=== PATIENT | male | born 1965 | race Caucasian/White ===

== ENCOUNTER 2017-09-27 14:53 | Emergency (ER) | payer MEDICAID ==
[~2017-09-27] VITALS: Ht 180.3 cm; Wt 79.4 kg
[~2017-09-27 14:53] MED LIST: ALPR-229; AMPH30CA7; CLON1POW; HYDR10TA35
[2017-09-27 15:40] VITALS: BP 145/100
[2017-09-27] MEDS ORDERED: MUPIROCIN 2% OINT 22GM TOP ONE (16:15)
[2017-09-27] MEDS ORDERED: KETOROLAC TROMETH 60MG/2ML VIAL IM ONE (16:15)
[2017-09-27] MEDS ORDERED: NEOMYCIN-BACITRACIN-POLYM UNITDOSE PKG TOP OINT TOP ONE (16:15)
[2017-09-27] MEDS ORDERED: HYDROcodone-ACET 10/325MG TAB PO ONE (16:30)
== END 2017-09-27 16:43 | disposition home or self-care (01) ==
LOC: ER 15:07
DX: S92.325A Nondisplaced fracture of second metatarsal bone, left foot, initial encounter for closed fracture (principal); I10 Essential (primary) hypertension; W22.8XXA Striking against or struck by other objects, initial encounter; Y93.89 Activity, other specified; Y99.8 Other external cause status; Y92.89 Other specified places as the place of occurrence of the external cause
CPT/HCPCS: 73620; 99284; J1885

== ENCOUNTER 2019-09-21 11:31 | Emergency (ER) | payer MEDICAID ==
[~2019-09-21] VITALS: Ht 177.8 cm; Wt 79.4 kg
[~2019-09-21 11:31] MED LIST changes: -CLON1POW; +[UNRECOGNIZED DRUG - CODE]
[2019-09-21 11:50] VITALS: BP 121/97
[2019-09-21 13:22] LABS: Basophils # (auto) 0 uL; Basophils % (auto) 0.6 % (0.0-2.0); Eosinophils # (auto) 0.3 uL; Eosinophils % (auto) 3.4 % (0.0-7.0); Hematocrit 40.1 % (41.0-53.0); Hemoglobin 13.4 g/dL (13.5-17.5); Lymphocytes # (auto) 1.6 uL; Lymphocytes % (auto) 21.9 % (10.0-50.0); Mean Corpuscular Hemoglobin 30.6 pg (28.0-32.0); Mean Corpuscular Hgb Conc. 33.3 g/dL (32.0-36.0); Mean Corpuscular Volume 92.1 fL (80.0-100.0); Monocytes # (auto) 0.7 uL; Monocytes % (auto) 9.4 % (0.0-12.0); Neutrophils # (auto) 4.9 uL; Neutrophils % (auto) 64.7 % (37.0-80.0); Platelet Count (auto) 352 10^3/uL (140-450); Red Blood Cells 4.36 10^6/uL (4.5-5.90); Red Cell Distribution Width 13.3 % (11.8-14.3); White Blood Cell 7.5 10^3/uL (4.4-10.8)
[2019-09-21 13:42] LABS: INR 1.01 (0.9-1.15); Partial Thromboplastin Time 30.5 sec (23.64-32.05)
[2019-09-21 13:52] LABS: Albumin 3.2 g/dL (3.4-5.0); Magnesium 2.4 mg/dL (1.6-2.6); Potassium 3.9 mmol/L (3.5-5.1)
[2019-09-21 13:57] LABS: BUN/Creatinine Ratio 8.5; Bilirubin, Total 0.5 mg/dL (0.2-1.0); Total Protein 7.4 g/dL (6.4-8.2)
== END 2019-09-21 16:15 | disposition left against medical advice (07) ==
LOC: ER 11:31
DX: J18.1 Lobar pneumonia, unspecified organism (principal); E78.5 Hyperlipidemia, unspecified; I10 Essential (primary) hypertension
CPT/HCPCS: 36415; 70450; 71045; 80053; 83735; 83880; 84484; 85025; 85610; 85730; 93005

== ENCOUNTER 2021-12-08 22:02 | Emergency (ER) | payer MEDICAID ==
[~2021-12-08] VITALS: Ht 180.3 cm; Wt 79.4 kg
[~2021-12-08 22:02] MED LIST changes: -ALPR-229; +ALPR2TAB6
[2021-12-08] MEDS ORDERED: DexAMETHasone SOD PHOS 10MG/1ML VIAL INJ IV ONE (23:00)
[2021-12-08 23:04] LABS: Basophils # (auto) 0.1 10 ^3/uL (0-0.2); Basophils % (auto) 2.3 % (0.0-2.0); Eosinophils # (auto) 0.4 10 ^3/uL (0-0.8); Eosinophils % (auto) 7.6 % (0.0-7.0); Hematocrit 39.1 % (41.0-53.0); Hemoglobin 13.1 g/dL (13.5-17.5); Lymphocytes # (auto) 1.5 10 ^3/uL (0.4-5.4); Lymphocytes % (auto) 26.4 % (10.0-50.0); Mean Corpuscular Hemoglobin 30.6 pg (28.0-32.0); Mean Corpuscular Hgb Conc. 33.5 g/dL (32.0-36.0); Mean Corpuscular Volume 91.3 fL (80.0-100.0); Monocytes # (auto) 0.4 10 ^3/uL (0-1.3); Monocytes % (auto) 6.7 % (0.0-12.0); Neutrophils # (auto) 3.2 10 ^3/uL (1.6-8.6); Nucleated Red Blood Cells % 0.1 %; Red Blood Cells 4.29 10^6/uL (4.5-5.90); Red Cell Distribution Width 13.2 % (11.8-14.3); White Blood Cell 5.6 10^3/uL (4.4-10.8)
[2021-12-08 23:18] VITALS: BP 132/97
[2021-12-08 23:23] LABS: Albumin 3.5 g/dL (3.4-5.0); Potassium 4.2 mmol/L (3.5-5.1)
[2021-12-08 23:28] LABS: BUN/Creatinine Ratio 12.6; Bilirubin, Total 0.3 mg/dL (0.2-1.0); Total Protein 6.9 g/dL (6.4-8.2)
== END 2021-12-09 01:10 | disposition home or self-care (01) ==
LOC: ER 22:02 → EDBD 22:02 → ER 12-09 01:10
DX: J45.909 Unspecified asthma, uncomplicated (principal); I10 Essential (primary) hypertension; E78.5 Hyperlipidemia, unspecified; Z86.73 Personal history of transient ischemic attack (TIA), and cerebral infarction without residual deficits; Z20.822 Contact with and (suspected) exposure to COVID-19
CPT/HCPCS: 36415; 71045; 80053; 84484; 85025; 87426; 93005; 96374; 99285; J1100

== ENCOUNTER 2024-03-27 11:40 | Emergency (ER) | payer MEDICAID ==
[~2024-03-27] VITALS: Ht 177.8 cm; Wt 62.8 kg
[2024-03-27 13:43] VITALS: BP 125/89; PULSE 84; RESP 16; TEMP 98.2; O2SAT 97
[2024-03-27] MEDS: TETANUS-DIPTH-ACEL PERTUSSIS 0.5ML SYR Tdap IM ONE (15:08)
[2024-03-27] MEDS: BACITRACIN TOP OINT 1 UD PKG TOP ONE (15:30)
== END 2024-03-27 15:40 | disposition home or self-care (01) ==
LOC: ER 11:40
DX: S01.81XA Laceration without foreign body of other part of head, initial encounter (principal); S06.891A Other specified intracranial injury with loss of consciousness of 30 minutes or less, initial encounter; I10 Essential (primary) hypertension; E11.9 Type 2 diabetes mellitus without complications; E78.5 Hyperlipidemia, unspecified; J45.909 Unspecified asthma, uncomplicated; Z86.73 Personal history of transient ischemic attack (TIA), and cerebral infarction without residual deficits; Z98.890 Other specified postprocedural states; Z88.8 Allergy status to other drugs, medicaments and biological substances; Z79.899 Other long term (current) drug therapy; W22.8XXA Striking against or struck by other objects, initial encounter; Y93.89 Activity, other specified; Y92.89 Other specified places as the place of occurrence of the external cause; Y99.8 Other external cause status
CPT/HCPCS: 12011; 70450; 82962; 90471; 90715

== ENCOUNTER 2025-04-27 11:19 | Inpatient (IN) | payer MEDICAID ==
[~2025-04-27] VITALS: Ht 175.3 cm; Wt 66.6 kg
--- NOTE | 2025-04-27 11:31 | ED.PDOC ---
General HPI Comments 59y M who presents to the ED for chief complaint of Left Mid abdominal pain - pt states he has been having L sided mid abdominal pain for the past 3 days - pt states the pain is constant, with pain radiating to the left flank, - pt has associated dysuria and difficulty voiding but denies any other symptoms - pt otherwise denies any other symptoms at this time past medical history: DM 2, HLD, CVA, HTN, past surgical history: hernia allergies: ketoralax, tromethamine medications: insulin, flomax social history: denies tobacco use, denies ETOH use, denies drug use HPI: Poor Historian. REVIEW OF SYSTEMS: CONSTITUTIONAL: Denies acute: fever, diaphoresis, chills, generalized weakness. HEAD: Denies acute: headache, photophobia Eyes: Denies acute: Double vision, vision loss, eye pain, eye discharge. EARS: Denies acute: tinnitus, hearing loss, ear discharge, ear pain, THROAT: Denies acute: sore throat, swelling, difficulty swallowing , pain with swallowing, change in voice. NECK: Denies acute: neck pain, neck swelling, stiff neck. HEART: Denies acute : chest pain, palpitations, LUNGS: Denies acute: SOB, wheezing, cough, hemoptysis ABDOMEN: Denies acute: Nausea, Vomiting, diarrhea, melena , hematemesis, hematochezia SKIN: Denies acute: rash, redness, lesions, itchiness. EXTREMITIES: Denies acute: calf pain, numbness, tingling, weakness, denies pain in extremity. Denies acute: Low back pain. Neuro: Denies acute: focal neurological deficit, motor or sensory focal neurological deficit, tremors, seizure like activity, confusion, dizziness, change in mental status, loss of bowel or bladder function, cauda equina like symptoms. : Denies acute: hematuria, flank pain, PSYCH: Denies acute: hallucination, suicidal ideation, homicidal ideation. PHYSICAL EXAM: General: ----qkzq-[id number]----acute distress, awake and alert. Head: normocephalic, atraumatic. Neck: supple, trachea is midline, no swelling. Throat: Normal phonation. Eyes:, no erythema, no purulent discharge, no proptosis, no icterus. Heart: regular rate, regular rhythm, no significant murmur appreciated. Lungs: no apparent respiratory distress, Able to speak in full sentences. No wheezing, no rhonchi, no crackles. No stridors Clear to auscultation bilaterally. Abdomen: Left mid abdomen tender to palpation, non distended, soft, no guarding, no rebound, + bowel sounds. Neuro: Awake, Alert, oriented to name, self, situation, follows commands GCS=15. Speech is normal. Skin: no petechia, no purpura, no cyanosis, non-pale, not jaundice. Lower extremities: --no - Pitting edema no deformity, no focal swelling, no calf TTP. Makes eye contact. moves all four extremities. Face: no apparent facial droop. Left CVA tenderness to percussion ED COURSE: DISCLAIMER: This medical document was created using an electronic medical record system with voice recognition software and computerized dictation system. Although this document has been carefully reviewed, there might still be some phonetic and typographical errors. Occasional wrong-word or "sound-alike" substitutions may have occurred due to the inherent limitations of voice recognition software. These areas are purely typographical due to imperfections of the software programs and do not reflect any compromise in the patient's medical care. Please read the chart carefully and recognize, using context, where these substitutions have occurred. Time Seen by MD: 11:25 Primary Care Provider: AVIS Perla notes: Medications, Allergies Allergies: Coded Allergies: Ketorolac Tromethamine (Verified Allergy, Mild, PAIN AT SITE FOR 3 MONTHS, 09/27/17) Home Meds Reported Medications Hydrocodone-Acetaminophen (Hydrocodone Bitartrate/Ac) 1 Tab Tab, DAILY 07/26/13 Alprazolam (Alprazolam) 2 Mg Tab, DAILY 07/26/13 Amphetamine/Dextroamphetamine (Adderall Xr) 30 Mg Cap, BID 07/26/13 Clonidine Hydrochloride (Clonidine Hcl) Pow 06/24/10 Information Source: Patient, Spouse Mode of Arrival: Wheelchair Brought in by: spouse Past Medical History PAST MEDICAL HISTORY: Asthma, CVA, DM, High Lipids, HTN Surgical History: Hernia Repair Family History Family History: Reviewed,noncontributory to illness Social History Smoker: Non-Smoker Alcohol: Denies ETOH Use Drugs: Denies Drug Use Lives In: Home Was a procedure done? Was a procedure done?: No Differential Diagnosis Kidney stone (Female): N/A Kidney stone (Male): Other (DDX include but not limited to diverticulitis, colitis, gastroenteritis, acute abdomen, SBO, enteritis, constipation, volvulus, appendicitis, Gallbladder disease, choledocolithiasis, ascending cholangitis, pancreatitis, intraAbdominal mass/neoplasm, hepatitis, UTI, pylonephritis, kidney stone, aneurysm, dissection, Inflammatory bowel disease, gastroparesis, ischemic bowel.) Urinary Problem (Male): Bladder Outlet, Bladder Obstruction, Epididymitis, Prostatitis, Plelonephritis, Post op Complications, Renal Failure, Urethritis, Urinary Retention, Urolithiasis X-Ray, Labs, Meds, VS Vital Signs Date Time Temp Pulse Resp B/P (MAP) Pulse Ox O2 Delivery O2 Flow Rate FiO2 04/27/25 13:42 84 19 98 Room Air* 0 21 04/27/25 12:58 98.7 81 16 137/87 (104) 96 98.7 04/27/25 12:58 81 16 96 Room Air 04/27/25 11:28 98.5 80 18 128/83 (98) 95 98.5 Lab Test 04/27/25 11:53 04/27/25 11:30 Range/Units White Blood Count 8.9 4.4-10.8 10^3/uL Red Blood Count 4.76 4.5-5.90 10^6/uL Hemoglobin 14.2 13.5-17.5 g/dL Hematocrit 42.1 41.0-53.0 % Mean Corpuscular Volume 88.5 80.0-100.0 fL Mean Corpuscular Hemoglobin 29.8 28.0-32.0 pg Mean Corpuscular Hemoglobin Concent 33.7 32.0-36.0 g/dL Red Cell Distribution Width 14.6 H 11.8-14.3 % Platelet Count 286 140-450 10^3/uL Mean Platelet Volume 6.8 L 6.9-10.8 fL Neutrophils (%) (Auto) 71.7 37.0-80.0 % Lymphocytes (%) (Auto) 18.3 10.0-50.0 % Monocytes (%) (Auto) 7.7 0.0-12.0 % Eosinophils (%) (Auto) 1.7 0.0-7.0 % Basophils (%) (Auto) 0.6 0.0-2.0 % Neutrophils # (Auto) 6.4 1.6-8.6 10 ^3/uL Lymphocytes # (Auto) 1.6 0.4-5.4 10 ^3/uL Monocytes # (Auto) 0.7 0-1.3 10 ^3/uL Eosinophils # (Auto) 0.2 0-0.8 10 ^3/uL Basophils # (Auto) 0.1 0-0.2 10 ^3/uL Nucleated Red Blood Cells 0.0 % Sodium Level 144 136-145 mmol/L Potassium Level 3.4 L 3.5-5.1 mmol/L Chloride Level 112 H 98-107 mmol/L Carbon Dioxide Level 20 20-31 mmol/L Anion Gap 12 5-15 Blood Urea Nitrogen 20 9-23 mg/dL Creatinine 1.81 H 0.700-1.30 mg/dL Glomerular Filtration Rate Calc 42 >90 mL/min BUN/Creatinine Ratio 11.0 10.0-20.0 Serum Glucose 52 L 74-106 mg/dL Lactic Acid Level 0.9 0.4-2.0 mmol/L Calcium Level 10.0 8.7-10.4 mg/dL Total Bilirubin 0.6 0.2-1.0 mg/dL Aspartate Amino Transferase (AST) 17 <34 U/L Alanine Aminotransferase (ALT) 12 7-40 U/L Alkaline Phosphatase 79 46-116 U/L Troponin I High Sensitivity 4 </=54 ng/L Total Protein 7.0 5.7-8.2 g/dL Albumin 4.4 3.2-4.8 g/dL Lipase 14 12-53 U/L Urine Color Light-yellow Yellow Urine Clarity Clear Clear Urine pH 5.5 5.0-9.0 Urine Specific [place] 1.014 1.001-1.035 Urine Protein 1+ H Negative Urine Ketones Negative Negative Urine Blood 2+ H Negative /uL Urine Nitrite Negative Negative Urine Bilirubin Negative Negative Urine Urobilinogen Normal Negative mg/dL Urine Leukocyte Esterase Negative Negative /uL Urine RBC 10 0 - 3 /hpf Urine Microscopic WBC 1 0-3 /HPF Urine Squamous Epithelial Cells Few <5 /hpf Urine Bacteria Few H None Seen /hpf Urine Glucose Normal Normal mg/dL [facility] [id number] [facility] [address] Ph: [phone] DIAGNOSTIC IMAGING Diagnostic Imaging Report : [id number] Signed PATIENT: BRAYDEN KAUFMAN ACCT: [id number] UNIT: [id number] : 1965 LOC: ER ROOM / BED: / AGE / SEX: 59 / M ADM STATUS: REG ER SERVICE 1126 ORDERING PHYSICIAN: RUTHY SALAZAR DO PROCEDURE(s): ABPL - CT AB PEL WO CON-NO ORAL OR IV REASON: L sided abd pain ORDER NUMBER(s): [id number], ACCESSION NUMBER(s): [id number] EXAM DESCRIPTION: CT CT AB PEL WO CON-NO ORAL OR IV CLINICAL HISTORY: L sided abd pain COMPARISON: None TECHNIQUE: CT abdomen and pelvis without IV contrast was performed. Coronal and sagittal MPR images were generated.CTDI/ DLP = 8.63 / 374.37 Dose reduction technique with one or more of the following methods was performed: Automated exposure control, adjustment of the mA and/or kV according to patient size, use of iterative reconstruction technique FINDINGS: Lower chest: Bibasilar subsegmental atelectasis. Coronary artery disease. Liver: Homogenous in attenuation. . Biliary: No calcified gallstones. No biliary ductal dilatation. Pancreas: Markedly atrophic pancreas with numerous calcifications. The pancreatic duct is dilated measuring up to 14mm of the pancreatic head. There is an 11 mm calcification at the pancreatic head, possibly intraductal. Spleen: Normal in size.. Adrenal glands: No nodularity. Kidneys: A few right renal calculi measuring up to 3 mm. No right-sided hydronephrosis. Mild left hydroureteronephrosis with A 4mm calculus at the left ureterovesicular junction. . Bladder: Diffuse bladder wall thickening. Reproductive organs: Prostatomegaly. Bowel: No bowel wall thickening or dilatation. Moderate to large colonic stool burden. . Peritoneum: No free fluid. No free air. Vessels: Normal caliber abdominal aorta. . Lymph nodes: No suspicious lymph nodes. Soft tissues: Unremarkable. . Osseous structures: No acute fracture or subluxation. No suspicious osseous lesions. Degenerative changes of the visualized thoracolumbar spine. Bilateral L5 pars defects with grade 1-2 anterolisthesis of L5 on S1. Mild compression deformity of the L3 vertebral body, likely chronic. [id number] compression deformity of the L4 vertebral body, likely chronic. IMPRESSION: 1. Mild left hydroureteronephrosis due to a 4 mm obstructing calculus at the left uterovesicular junction. 2. A few nonobstructive right renal calculi measuring up to 3 mm. 3. Diffuse bladder wall thickening with prostatomegaly, suggestive of chronic bladder outlet obstruction. Underlying cystitis cannot be excluded. 4. Atrophic pancreas with numerous calcifications, suggestive of chronic pancreatitis. There is severe pancreatic ductal dilation with a possible 14 mm intraductal calcification at the pancreatic head. Recommend further evaluation with MRCP. ATED BY: RADHA BARROSO MD DICTATED DATE/TIME: 04/27/25 1223 SIGNED BY: RADHA BARROSO MD SIGNED DATE/TIME: 04/27/25 1223 CC: Time of 1ST Reevaluation: 00:00 Reevaluation 1ST: N/A Patient Education/Counseling: Diagnosis, Treatment Family Education/Counseling: Diagnosis, Treatment Comments Patient presented with the above HPI.--abdominal pain---workup was initiated. patient was found with the above mentioned diagnosis. the following medications were ordered: please refer to order lists of meds and tests obtained by myself Dr. Salazar. Patient ED course and VS have been stabilized. Patient has been reassessed in the ED and remained in a stable condition. Pertinent incidental findings were discussed with the patient and/or family. Patient/family voices understanding and is agreeable with plan. Patient has been observed in the ED adequate length of time to insure improvement/stability. Escalation of care considered: Consideration of escalation to observation or admission Patient was ADMITTED to the medicine team for further evaluation and treatment of their presentation. All the reports of any imaging studies that were ordered by myself were reviewed by myself. Departure 1 Departure Time of Disposition: 13:34 Impression: Primary Impression: Hydroureteronephrosis Additional Impressions: Obstructive uropathy Cystitis Acute renal insufficiency Disposition: ADMITTED INPATIENT Admit to: Tele Condition: Guarded Discharged With: Self Critical Care Note Critical Care Time?: Yes (55 min-critical care time only) I personally scribed for RUTHY SALAZAR DO (DVFARIL) on 04/27/25 at 11:31. Electronically submitted by Nay Ogden ([facility]). I personally scribed for RUTHY SALAZAR DO (OLEFARIL) on 04/27/25 at 12:17. Electronically submitted by Nay Ogden ([facility] I personally scribed for RUTHY SALAZAR DO ([facility]) on 04/27/25 at 14:24. Electronically submitted by Nay Ogden ([facility] RUTHY SALAZAR DO Apr 27, 2025 11:31
[2025-04-27 12:03] LABS: Basophils # (auto) 0.1 10 ^3/uL (0-0.2); Basophils % (auto) 0.6 % (0.0-2.0); Eosinophils # (auto) 0.2 10 ^3/uL (0-0.8); Eosinophils % (auto) 1.7 % (0.0-7.0); Hematocrit 42.1 % (41.0-53.0); Hemoglobin 14.2 g/dL (13.5-17.5); Lymphocytes # (auto) 1.6 10 ^3/uL (0.4-5.4); Lymphocytes % (auto) 18.3 % (10.0-50.0); Mean Corpuscular Hemoglobin 29.8 pg (28.0-32.0); Mean Corpuscular Hgb Conc. 33.7 g/dL (32.0-36.0); Mean Corpuscular Volume 88.5 fL (80.0-100.0); Monocytes # (auto) 0.7 10 ^3/uL (0-1.3); Monocytes % (auto) 7.7 % (0.0-12.0); Neutrophils # (auto) 6.4 10 ^3/uL (1.6-8.6); Neutrophils % (auto) 71.7 % (37.0-80.0); Platelet Count (auto) 286 10^3/uL (140-450); Red Blood Cells 4.76 10^6/uL (4.5-5.90); Red Cell Distribution Width 14.6 % (11.8-14.3); White Blood Cell 8.9 10^3/uL (4.4-10.8)
--- NOTE | 2025-04-27 12:25 | DVH ---
EXAM DESCRIPTION: CT CT AB PEL WO CON-NO ORAL OR IV CLINICAL HISTORY: L sided abd pain COMPARISON: None TECHNIQUE: CT abdomen and pelvis without IV contrast was performed. Coronal and sagittal MPR images were generat ed.CTDI/ DLP = 8.63 / 374.37 Dose reduction technique with one or more of the following methods was performed: Automated exposure control, adjustment of the mA and/or kV according to patient size, use of iterative reconstruction te chnique FINDINGS: Lower chest: Bibasilar subsegmental atelectasis. Coronary artery disease. Liver: Homogenous in attenuation. . Biliary: No calcified gallstones. No biliary ductal dilatation. Pancreas: Markedly atrophic pancreas with numerous calcifications. The pancreatic duct is dilated debo suring up to 14mm of the pancreatic head. There is an 11 mm calcification at the pancreatic head, pos sibly intraductal. Spleen: Normal in size.. Adrenal glands: No nodularity. Kidneys: A few right renal calculi measuring up to 3 mm. No right-sided hydronephrosis. Mild left hyd roureteronephrosis with A 4mm calculus at the left ureterovesicular junction. . Bladder: Diffuse bladder wall thickening. Reproductive organs: Prostatomegaly. Bowel: No bowel wall thickening or dilatation. Moderate to large colonic stool burden. . Peritoneum: No free fluid. No free air. Vessels: Normal caliber abdominal aorta. . Lymph nodes: No suspicious lymph nodes. Soft tissues: Unremarkable. . Osseous structures: No acute fracture or subluxation. No suspicious osseous lesions. Degenerative c hanges of the visualized thoracolumbar spine. Bilateral L5 pars defects with grade 1-2 anterolisthesi s of L5 on S1. Mild compression deformity of the L3 vertebral body, likely chronic. [id number] compression deformity of the L4 vertebral body, likely chronic. IMPRESSION: 1. Mild left hydroureteronephrosis due to a 4 mm obstructing calculus at the left uterovesicular junc tion. 2. A few nonobstructive right renal calculi measuring up to 3 mm. 3. Diffuse bladder wall thickening with prostatomegaly, suggestive of chronic bladder outlet obstruct ion. Underlying cystitis cannot be excluded. 4. Atrophic pancreas with numerous calcifications, suggestive of chronic pancreatitis. There is sever e pancreatic ductal dilation with a possible 14 mm intraductal calcification at the pancreatic head. Recommend further evaluation with MRCP.
[2025-04-27 12:50] LABS: Alanine Aminotransferase 12 U/L (7-40); Albumin 4.4 g/dL (3.2-4.8); Alkaline Phosphatase 79 U/L (46-116); Anion Gap 12 (5-15); Aspartate Aminotransferase 17 U/L (<34); Blood Urea Nitrogen 20 mg/dL (9-23); Carbon Dioxide 20 mmol/L (20-31); Sodium 144 mmol/L (136-145)
[2025-04-27 12:51] LABS: Bilirubin, Total 0.6 mg/dL (0.2-1.0); Chloride 112 mmol/L (98-107); Glucose 52 mg/dL (74-106); Potassium 3.4 mmol/L (3.5-5.1)
[2025-04-27 13:11] LABS: Lipase 14 U/L (12-53)
[2025-04-27] MEDS: TAMSULOSIN HYDROCHLORIDE 0.4 MG CAP PO ONE (13:15)
[2025-04-27] MEDS: SODIUM CHLORIDE 0.9% 1,000 ML IV ONE ×2 (13:16→14:57)
[2025-04-27] MEDS: HYDROcodone-ACET 5/325MG TAB PO ONE (13:16)
[2025-04-27] MEDS: cefTRIAXone 1GM/50ML D5W 50 ML IV ONE (13:38)
[2025-04-27 13:42] VITALS: PULSE 84; RESP 19; O2SAT 98
[2025-04-27] MEDS ORDERED: ACETAMINOPHEN 325 MG TAB PO PRN (14:15)
[2025-04-27] MEDS ORDERED: TEMAZEPAM 15 MG CAP PO PRN (14:15)
--- NOTE | 2025-04-27 14:20 | DVHHP2 ---
Admitting Diagnosis: Abdominal pain History of Present Illness 59 y/o male patient presents with c/o left abdominal pain x3 days. Patient states pain radiates to the left flank. Patient also c/o dysuria. While in the emergency department the patient was evaluated by the provider, As per provider: Labs, vital signs, and imagining monitored. Patient will be admitted for further evaluation and treatment. I discussed admission with the patient/family and is in agreement to treatment plan. Allergies: Coded Allergies: Ketorolac Tromethamine (Verified Allergy, Mild, PAIN AT SITE FOR 3 MONTHS, 09/27/17) Home Meds Reported Medications Hydrocodone-Acetaminophen (Hydrocodone Bitartrate/Ac) 1 Tab Tab, DAILY 07/26/13 Alprazolam (Alprazolam) 2 Mg Tab, DAILY 07/26/13 Amphetamine/Dextroamphetamine (Adderall Xr) 30 Mg Cap, BID 07/26/13 Clonidine Hydrochloride (Clonidine Hcl) Pow 06/24/10 Current Medications Current Medications Medications (Trade) Dose Ordered Sig/Margarita Route PRN Reason Start Time Stop Time Status Last Admin Acetaminophen/ Hydrocodone Bitart ([place] 5/325MG Tab) 1 tab Q4HP PRN PO MODERATE PAIN (4-6 PAIN SCALE) 04/27/25 14:15 04/28/25 10:01 Temazepam (Restoril) 15 mg QHSP PRN PO FOR INSOMNIA 04/27/25 14:15 Ondansetron HCl (Zofran) 4 mg Q4HP PRN IV NAUSEA / VOMITING 04/27/25 14:15 04/28/25 07:48 Acetaminophen (Tylenol Tablet) 650 mg Q6HP PRN PO PAIN SCALE 1-3 OR TEMP>100.4 04/27/25 14:15 Morphine Sulfate 2 mg Q4HPRN PRN IV SEVERE PAIN (7-10 PAIN SCALE) 04/27/25 14:15 04/28/25 07:49 Enoxaparin Sodium (Lovenox) 30 mg DAILY SC 04/28/25 10:00 04/28/25 07:48 Pantoprazole Sodium (Protonix) 40 mg DAILY IV 04/28/25 10:00 04/28/25 07:47 Tamsulosin HCl (Flomax) 0.4 mg QPM PO 04/28/25 18:00 Lisinopril (Zestril Tablet) 10 mg DAILY PO 04/28/25 10:00 04/28/25 07:47 Diagnostic Test (Pha) (Accu-Chek Comfort Curve T) 1 strip ACHS 04/27/25 17:00 04/28/25 06:27 Insulin Human Regular (InsuLIN R) ACHS SC 04/27/25 17:00 04/27/25 21:42 Dextrose 50 ml UD PRN IV Blood Sugar LESS THAN 60 04/27/25 14:30 04/28/25 06:27 Review of Systems Constitutional: denies chills, denies fever, denies malaise Eyes: denies eye pain, denies vision change ENT: denies ear pain, denies headache, denies nasal congestion, denies painful swallowing, denies voice change Cardiovascular: denies chest pain, denies edema, denies orthopnea, denies palpitations, denies paroxysmal nocturnal dyspnea Respiratory: denies cough, denies shortness of breath Gastrointestinal: denies constipation, denies diarrhea, denies nausea, denies vomiting Genitourinary: denies frequent urination, denies urethral discharge Musculoskeletal: denies back pain, denies joint pain, denies muscle pain Skin: denies bruising, denies itching, denies rash Neurological: denies focal weakness, denies headache, denies sensory changes Psychiatric: denies anxiety, denies depression Endocrine: denies polydipsia, denies polyuria Hematologic/Lymphatic: denies easy bleeding, denies easy bruising, denies enlarged lymph nodes Allergic/Immunologic: denies allergy, denies hives Vital Signs Vital Signs Date Time Temp Pulse Resp B/P (MAP) Pulse Ox O2 Delivery O2 Flow Rate FiO2 04/28/25 11:23 98.3 79 18 104/71 (82) 95 98.3 04/28/25 09:55 Nasal Cannula* 2 28 Physical Exam General Appearance: alert, no distress HEENT: EOMI, PERRLA, normal external inspect of ears, no icterus, no nasal drainage Neck: no carotid bruit, no jugular venous distention (JVD), no lymphadenopathy Chest: normal thorax Respiratory: clear to auscultation, normal air movement Cardiovascular: regular rate and rhythm, no diastolic murmur, no jugular venous distention (JVD), no rub, no systolic murmur Abdominal: soft, no hepatomegaly, no mass, no splenomegaly, no tenderness Genitourinary: grossly normal external Musculoskeletal: no joint tenderness, no swelling Extremities: normal pulses, no calf tenderness, no clubbing, no cyanosis, no edema Skin: no bruising, no jaundice, no rash Neurological: alert, No focal deficit Results Labs Test 04/28/25 07:15 04/28/25 04:32 04/27/25 11:53 04/27/25 11:30 Range/Units POC Glucose 146 H 70-106 mg/dl White Blood Count 7.8 4.4-10.8 10^3/uL Red Blood Count 4.44 L 4.5-5.90 10^6/uL Hemoglobin 13.4 L 13.5-17.5 g/dL Hematocrit 39.2 L 41.0-53.0 % Mean Corpuscular Volume 88.3 80.0-100.0 fL Mean Corpuscular Hemoglobin 30.3 28.0-32.0 pg Mean Corpuscular Hemoglobin Concent 34.3 32.0-36.0 g/dL Red Cell Distribution Width 15.0 H 11.8-14.3 % Platelet Count 261 140-450 10^3/uL Mean Platelet Volume 7.3 6.9-10.8 fL Neutrophils (%) (Auto) 60.3 37.0-80.0 % Lymphocytes (%) (Auto) 28.2 10.0-50.0 % Monocytes (%) (Auto) 8.4 0.0-12.0 % Eosinophils (%) (Auto) 2.6 0.0-7.0 % Basophils (%) (Auto) 0.5 0.0-2.0 % Neutrophils # (Auto) 4.7 1.6-8.6 10 ^3/uL Lymphocytes # (Auto) 2.2 0.4-5.4 10 ^3/uL Monocytes # (Auto) 0.7 0-1.3 10 ^3/uL Eosinophils # (Auto) 0.2 0-0.8 10 ^3/uL Basophils # (Auto) 0 0-0.2 10 ^3/uL Nucleated Red Blood Cells 0.1 % Sodium Level 146 H 136-145 mmol/L Potassium Level 3.2 L 3.5-5.1 mmol/L Chloride Level 114 H 98-107 mmol/L Carbon Dioxide Level 21 20-31 mmol/L Anion Gap 11 5-15 Blood Urea Nitrogen 18 9-23 mg/dL Creatinine 1.38 H 0.700-1.30 mg/dL Glomerular Filtration Rate Calc 58 >90 mL/min BUN/Creatinine Ratio 13.0 10.0-20.0 Serum Glucose 38 *L 74-106 mg/dL Calcium Level 9.6 8.7-10.4 mg/dL Total Bilirubin 0.3 0.2-1.0 mg/dL Aspartate Amino Transferase (AST) 14 <34 U/L Alanine Aminotransferase (ALT) 17 7-40 U/L Alkaline Phosphatase 65 46-116 U/L Total Protein 6.4 5.7-8.2 g/dL Albumin 3.9 3.2-4.8 g/dL Lactic Acid Level 0.9 0.4-2.0 mmol/L Troponin I High Sensitivity 4 </=54 ng/L Lipase 14 12-53 U/L Urine Color Light-yellow Yellow Urine Clarity Clear Clear Urine pH 5.5 5.0-9.0 Urine Specific [place] 1.014 1.001-1.035 Urine Protein 1+ H Negative Urine Ketones Negative Negative Urine Blood 2+ H Negative /uL Urine Nitrite Negative Negative Urine Bilirubin Negative Negative Urine Urobilinogen Normal Negative mg/dL Urine Leukocyte Esterase Negative Negative /uL Urine RBC 10 0 - 3 /hpf Urine Microscopic WBC 1 0-3 /HPF Urine Squamous Epithelial Cells Few <5 /hpf Urine Bacteria Few H None Seen /hpf Urine Glucose Normal Normal mg/dL Plan 1. Flank pain Monitor 2. Obstructing left renal calculi Monitor 3. Mild left hydronephrosis Monitor, urology consult, Flomax 4. DM II with hyperglycemia Monitor, insulin ss 5. Benign essential HTN Monitor, antihypertensives 6. BPH Monitor 7. Dilated pancreatic duct Monitor, GI consult, MRCP Plan discussed with: Patient, Other ALICIA FRANCOIS NP Apr 27, 2025 14:20
[2025-04-27 14:22] LABS: Urine Bacteria FEW /hpf (None Seen); Urine Blood 2+ /uL (Negative); Urine Clarity Clear (Clear); Urine Color Light-Yellow (Yellow); Urine Protein, UAD 1+ (Negative); Urine Specific Gravity 1.014 (1.001-1.035); Urine Squamous Epithelial Cell FEW /hpf (<5); Urine Urobilinogen Normal (Negative); Urine WBC 1 /HPF (0-3); Urine pH 5.5 (5.0-9.0)
[2025-04-27] MEDS: InsuLIN REG 1unit/0.01ml Soln (100units/ml) SC SCH (17:00)
[2025-04-27] MEDS: ACCU-CHEK COMFORT CURVE STRIP VI SCH (17:13)
--- NOTE | 2025-04-27 17:29 | DVH ---
[id number] MRI MRCP MRI Attending Name: RUTHY SALAZAR COMPARISON: CT abdomen 04/27/2025 INDICATION: dilated pancreatic duct TECHNIQUE: MRCP was performed without the use of intravenous contrast using a MRI imaging system. Three-dimensional MRCP was performed using maximum intensity projection reconstruction on an [facility] Owned it workstation under concurrent supervision. FINDINGS: Visualized lower thorax: Limited imaging of the thorax demonstrates no suspicious pleural or parenchy mal disease. Liver: Normal in morphology and signal intensity. Gallbladder: No evidence of cholelithiasis or gallbladder wall thickening. Biliary system: There is no intrahepatic or extrahepatic bile duct dilatation. No filling defect to s uggest choledocholithiasis. Spleen: Normal in morphology and signal intensity. Pancreas: Marked atrophic pancreas. Redemonstration of a beaded, dilated pancreatic duct measuring up to 1.3 cm. No obstructing lesion or stone identified. Adrenal glands: Normal in morphology and signal intensity. Kidneys: Redemonstration of mild left hydroureteronephrosis, partially visualized. Left perinephric f at stranding is noted. GI tract: Large stool burden. Lymph nodes: No enlarged lymph nodes. Peritoneum: No ascites. Musculoskeletal: The bone marrow signal intensity is within normal limits. Redemonstration of zonia mahamed deformities of L3 and L4. IMPRESSION: Marked chronic pancreatitis with redemonstration of a beaded, dilated pancreatic duct measuring up to 1.3 cm. No obstructing lesion or stone identified. Redemonstration of mild left hydroureteronephrosis, partially visualized. Left perinephric fat strand ing , which could represent obstructive nephropathy with upper urinary tract infection not excluded. Large stool burden.
[2025-04-27] MEDS: HYDROcodone-ACET 5/325MG TAB PO PRN (17:37)
[2025-04-27 19:21] VITALS: PULSE 86; RESP 18; O2SAT 95
[2025-04-28] MEDS: MORPHINE SULFATE INJ 2 MG/ml SYRG IV PRN (03:19)
[2025-04-28 05:22] LABS: Basophils # (auto) 0 10 ^3/uL (0-0.2); Basophils % (auto) 0.5 % (0.0-2.0); Eosinophils # (auto) 0.2 10 ^3/uL (0-0.8); Eosinophils % (auto) 2.6 % (0.0-7.0); Hematocrit 39.2 % (41.0-53.0); Hemoglobin 13.4 g/dL (13.5-17.5); Lymphocytes # (auto) 2.2 10 ^3/uL (0.4-5.4); Lymphocytes % (auto) 28.2 % (10.0-50.0); Mean Corpuscular Hemoglobin 30.3 pg (28.0-32.0); Mean Corpuscular Hgb Conc. 34.3 g/dL (32.0-36.0); Mean Corpuscular Volume 88.3 fL (80.0-100.0); Monocytes # (auto) 0.7 10 ^3/uL (0-1.3); Monocytes % (auto) 8.4 % (0.0-12.0); Neutrophils # (auto) 4.7 10 ^3/uL (1.6-8.6); Neutrophils % (auto) 60.3 % (37.0-80.0); Nucleated Red Blood Cells % 0.1 %; Platelet Count (auto) 261 10^3/uL (140-450); Red Blood Cells 4.44 10^6/uL (4.5-5.90); White Blood Cell 7.8 10^3/uL (4.4-10.8)
[2025-04-28 06:06] LABS: Alanine Aminotransferase 17 U/L (7-40); Albumin 3.9 g/dL (3.2-4.8); Alkaline Phosphatase 65 U/L (46-116); Anion Gap 11 (5-15); Aspartate Aminotransferase 14 U/L (<34); Blood Urea Nitrogen 18 mg/dL (9-23); Calcium 9.6 mg/dL (8.7-10.4); Carbon Dioxide 21 mmol/L (20-31); Total Protein 6.4 g/dL (5.7-8.2)
[2025-04-28 06:07] LABS: Bilirubin, Total 0.3 mg/dL (0.2-1.0)
[2025-04-28 06:10] LABS: Chloride 114 mmol/L (98-107); Potassium 3.2 mmol/L (3.5-5.1); Sodium 146 mmol/L (136-145)
[2025-04-28 06:11] LABS: Glucose 38 mg/dL (74-106)
[2025-04-28] MEDS: DEXTROSE (50%) 50ML SYRG IV PRN (06:27)
[2025-04-28] MEDS: PANTOPRAZOLE 40 MG/10 ML VIAL INJ IV SCH (07:47)
[2025-04-28] MEDS: LISINOPRIL 5 MG TAB PO SCH (07:47)
[2025-04-28] MEDS: ONDANSETRON HCL 4 MG/2 ML VIAL IV PRN (07:48)
[2025-04-28] MEDS: ENOXAPARIN SOD 30 MG/0.3 ML SYRINGE SC SCH (07:48)
[2025-04-28] MEDS: POTASSIUM EFFERVESENT TAB 25 MEQ GT ONE (07:48)
[2025-04-28 09:55] VITALS: PULSE 78; RESP 20; O2SAT 96
[2025-04-28 11:23] VITALS: BP 104/71; PULSE 79; RESP 18; TEMP 98.3; O2SAT 95
[2025-04-28 14:33] VITALS: BP 114/70; PULSE 74; RESP 16; TEMP 98; O2SAT 95
--- NOTE | 2025-04-28 15:00 | DVHPN2 ---
Progress Note - Dictate Date Seen: Apr 28, 2025 Medical Necessity Reason Pt with a Central, PICC or Fol: No vital signs Vital Sign Date Time Temp Pulse Resp B/P (MAP) Pulse Ox O2 Delivery O2 Flow Rate FiO2 04/28/25 14:33 98.0 74 16 114/70 (85) 95 98.0 04/28/25 09:55 Nasal Cannula* 2 28 Total Intake and Output 04/27/25 04/27/25 04/28/25 15:00 23:00 07:00 Intake Total 300 ml 100 ml Balance 300 ml 100 ml medications Current Medications Medications Dose Ordered Sig/Margarita Route Start Time Stop Time Status Last Admin Dose Admin Acetaminophen/ Hydrocodone Bitart 1 tab Q4HP PRN PO 04/27/25 14:15 04/28/25 10:01 1 TAB Temazepam 15 mg QHSP PRN PO 04/27/25 14:15 Ondansetron HCl 4 mg Q4HP PRN IV 04/27/25 14:15 04/28/25 07:48 4 MG Acetaminophen 650 mg Q6HP PRN PO 04/27/25 14:15 Morphine Sulfate 2 mg Q4HPRN PRN IV 04/27/25 14:15 04/28/25 12:24 2 MG Enoxaparin Sodium 30 mg DAILY SC 04/28/25 10:00 04/28/25 07:48 30 MG Pantoprazole Sodium 40 mg DAILY IV 04/28/25 10:00 04/28/25 07:47 40 MG Tamsulosin HCl 0.4 mg QPM PO 04/28/25 18:00 Lisinopril 10 mg DAILY PO 04/28/25 10:00 04/28/25 07:47 10 MG Diagnostic Test (Pha) 1 strip ACHS 04/27/25 17:00 04/28/25 12:33 1 STRIP Insulin Human Regular ACHS SC 04/27/25 17:00 04/27/25 21:42 3 UNITS Dextrose 50 ml UD PRN IV 04/27/25 14:30 04/28/25 06:27 50 ML objective General Appearance: alert, no distress HEENT: EOMI, PERRLA, normal external inspect of ears, no icterus, no nasal drainage Neck: no carotid bruit, no jugular venous distention (JVD), no lymphadenopathy Chest: normal thorax Respiratory: clear to auscultation, normal air movement Cardiovascular: regular rate and rhythm, no diastolic murmur, no jugular venous distention (JVD), no rub, no systolic murmur Abdominal: soft, no hepatomegaly, no mass, no splenomegaly, no tenderness Genitourinary: grossly normal external Musculoskeletal: no joint tenderness, no swelling Extremities: normal pulses, no calf tenderness, no clubbing, no cyanosis, no edema Skin: no bruising, no jaundice, no rash Neurological: alert, No focal deficit laboratory and microbiology Laboratory Tests 04/28/25 04:32 Test 04/28/25 04:32 Range/Units Serum Glucose 38 *L 74-106 mg/dL Problem List 1. Flank pain Monitor 2. Obstructing left renal calculi Monitor 3. Mild left hydronephrosis Monitor, urology consult, Flomax 4. DM II with hyperglycemia Monitor, insulin ss 5. Benign essential HTN Monitor, antihypertensives 6. BPH Monitor 7. Dilated pancreatic duct Monitor, GI consult, MRCP 8. Chronic pancreatitis Monitor, outpatient surveillance. Assessment/Plan Subjective Patient is awake and alert. Objective Patient was admitted for flank pain. Patient was found to have a left obstructing renal calculus. Patient has underlying history of diabetes and hypertension. Plan GI consult. Urology consult. Continue IV fluids and flomax. Continue PRN pain medications. Plan discussed with: Patient, Other ALICIA FRANCOIS NP Apr 28, 2025 15:00
[2025-04-28] MEDS: TAMSULOSIN HYDROCHLORIDE 0.4 MG CAP PO SCH (17:46)
[2025-04-28] MEDS: PIPERACILLIN-TAZOB 3.375GM 100 ML IV SCH (18:54)
[2025-04-28 21:00] VITALS: BP 117/84; PULSE 61; RESP 17; TEMP 98.2; O2SAT 96
--- NOTE | 2025-04-29 00:18 | DVHINCON2 ---
Date of service: Apr 29, 2025 Referring Physician Josie Ragland Reason for Consultation Dilated pancreatic duct with pancreatic calcifications History of Present Illness 59y M who presents to the ED for chief complaint of Left Mid abdominal pain for three days radiating to the left flank. Patient had associated dysuria and difficulty voiding. He denied any nausea vomiting no hematemesis. GI was consulted because of abnormal finding GI tract imaging related to pancreatic duct Patient was resting comfortably be when seen at bedside Past Medical History past medical history: DM 2, HLD, CVA, HTN, Past Surgical History past surgical history: hernia Family History: Patient reports no known family medical history. Allergies: Coded Allergies: Ketorolac Tromethamine (Verified Allergy, Mild, PAIN AT SITE FOR 3 MONTHS, 09/27/17) Home Meds Reported Medications Hydrocodone-Acetaminophen (Hydrocodone Bitartrate/Ac) 1 Tab Tab, DAILY 07/26/13 Alprazolam (Alprazolam) 2 Mg Tab, DAILY 07/26/13 Amphetamine/Dextroamphetamine (Adderall Xr) 30 Mg Cap, BID 07/26/13 Clonidine Hydrochloride (Clonidine Hcl) Pow 06/24/10 Current Medications Current Medications Medications (Trade) Dose Ordered Sig/Margarita Route PRN Reason Start Time Stop Time Status Last Admin Enoxaparin Sodium (Lovenox) 30 mg DAILY SC 04/28/25 10:00 04/28/25 07:48 Pantoprazole Sodium (Protonix) 40 mg DAILY IV 04/28/25 10:00 04/28/25 07:47 Tamsulosin HCl (Flomax) 0.4 mg QPM PO 04/28/25 18:00 04/28/25 17:46 Lisinopril (Zestril Tablet) 10 mg DAILY PO 04/28/25 10:00 04/28/25 07:47 Piperacillin Sod/ Tazobactam Sod 100 ml @ 25 mls/hr Q8HR IV 04/28/25 15:00 04/28/25 18:54 Vital Signs Vital Signs Date Time Temp Pulse Resp B/P (MAP) Pulse Ox O2 Delivery O2 Flow Rate FiO2 04/28/25 21:57 Room Air* 0 21 04/28/25 21:44 61 17 117/84 04/28/25 21:00 98.2 96 98.2 Physical Exam General Appearance: alert, no distress HEENT: EOMI, PERRLA, normal external inspect of ears, no icterus, no nasal drainage Neck: no carotid bruit, no jugular venous distention (JVD), no lymphadenopathy Chest: normal thorax Respiratory: clear to auscultation, normal air movement Cardiovascular: regular rate and rhythm, no diastolic murmur, no jugular venous distention (JVD), no rub, no systolic murmur Abdominal: soft, no hepatomegaly, no mass, no splenomegaly, no tenderness Genitourinary: grossly normal external Musculoskeletal: no joint tenderness, no swelling Extremities: normal pulses, no calf tenderness, no clubbing, no cyanosis, no edema Skin: no bruising, no jaundice, no rash Neurological: alert, No focal deficit Labs/Diagnostic Data Labs Test 04/28/25 19:29 04/28/25 04:32 04/27/25 11:53 04/27/25 11:30 Range/Units POC Glucose 65 L 70-106 mg/dl White Blood Count 7.8 4.4-10.8 10^3/uL Red Blood Count 4.44 L 4.5-5.90 10^6/uL Hemoglobin 13.4 L 13.5-17.5 g/dL Hematocrit 39.2 L 41.0-53.0 % Mean Corpuscular Volume 88.3 80.0-100.0 fL Mean Corpuscular Hemoglobin 30.3 28.0-32.0 pg Mean Corpuscular Hemoglobin Concent 34.3 32.0-36.0 g/dL Red Cell Distribution Width 15.0 H 11.8-14.3 % Platelet Count 261 140-450 10^3/uL Mean Platelet Volume 7.3 6.9-10.8 fL Neutrophils (%) (Auto) 60.3 37.0-80.0 % Lymphocytes (%) (Auto) 28.2 10.0-50.0 % Monocytes (%) (Auto) 8.4 0.0-12.0 % Eosinophils (%) (Auto) 2.6 0.0-7.0 % Basophils (%) (Auto) 0.5 0.0-2.0 % Neutrophils # (Auto) 4.7 1.6-8.6 10 ^3/uL Lymphocytes # (Auto) 2.2 0.4-5.4 10 ^3/uL Monocytes # (Auto) 0.7 0-1.3 10 ^3/uL Eosinophils # (Auto) 0.2 0-0.8 10 ^3/uL Basophils # (Auto) 0 0-0.2 10 ^3/uL Nucleated Red Blood Cells 0.1 % Sodium Level 146 H 136-145 mmol/L Potassium Level 3.2 L 3.5-5.1 mmol/L Chloride Level 114 H 98-107 mmol/L Carbon Dioxide Level 21 20-31 mmol/L Anion Gap 11 5-15 Blood Urea Nitrogen 18 9-23 mg/dL Creatinine 1.38 H 0.700-1.30 mg/dL Glomerular Filtration Rate Calc 58 >90 mL/min BUN/Creatinine Ratio 13.0 10.0-20.0 Serum Glucose 38 *L 74-106 mg/dL Calcium Level 9.6 8.7-10.4 mg/dL Total Bilirubin 0.3 0.2-1.0 mg/dL Aspartate Amino Transferase (AST) 14 <34 U/L Alanine Aminotransferase (ALT) 17 7-40 U/L Alkaline Phosphatase 65 46-116 U/L Total Protein 6.4 5.7-8.2 g/dL Albumin 3.9 3.2-4.8 g/dL Lactic Acid Level 0.9 0.4-2.0 mmol/L Troponin I High Sensitivity 4 </=54 ng/L Lipase 14 12-53 U/L Urine Color Light-yellow Yellow Urine Clarity Clear Clear Urine pH 5.5 5.0-9.0 Urine Specific [place] 1.014 1.001-1.035 Urine Protein 1+ H Negative Urine Ketones Negative Negative Urine Blood 2+ H Negative /uL Urine Nitrite Negative Negative Urine Bilirubin Negative Negative Urine Urobilinogen Normal Negative mg/dL Urine Leukocyte Esterase Negative Negative /uL Urine RBC 10 0 - 3 /hpf Urine Microscopic WBC 1 0-3 /HPF Urine Squamous Epithelial Cells Few <5 /hpf Urine Bacteria Few H None Seen /hpf Urine Glucose Normal Normal mg/dL MRCP IMPRESSION: Marked chronic pancreatitis with redemonstration of a beaded, dilated pancreatic duct measuring up to 1.3 cm. No obstructing lesion or stone identified. Redemonstration of mild left hydroureteronephrosis, partially visualized. Left perinephric fat stranding , which could represent obstructive nephropathy with upper urinary tract infection not excluded. Large stool burden. CT SCAN ABD PELVIS IMPRESSION: 1. Mild left hydroureteronephrosis due to a 4 mm obstructing calculus at the left uterovesicular junction. 2. A few nonobstructive right renal calculi measuring up to 3 mm. 3. Diffuse bladder wall thickening with prostatomegaly, suggestive of chronic bladder outlet obstruction. Underlying cystitis cannot be excluded. 4. Atrophic pancreas with numerous calcifications, suggestive of chronic pancreatitis. There is severe pancreatic ductal dilation with a possible 14 mm intraductal calcification at the pancreatic head. Recommend further evaluation with MRCP. Problems(with codes): (1) Chronic pancreatitis (2) Pancreatic ductal abnormality (3) Atrophy of pancreas (4) Cystitis (5) Obstructive uropathy (6) Acute renal insufficiency (7) Hydroureteronephrosis Plan/Recommendation Assessment and plan Patient's symptoms are likely related to his obstructing left ureteral stone and hydronephrosis Urology follow up evaluation and management for the same Incidental findings on his pancreatic duct is related to history of chronic pancreatitis Check a CA 19-9 , continue observation and management, lipase level is normal Consider use of Creon or pancreatic enzyme supplements if the patient shows signs of pancreatic insufficiency Consider outpatient elective EUS once medically stabilized Patient also is having some episodes of hypoglycemia and we will advance diet as tolerated Plan discussed with: Patient, Other (ER Nurse) NAYELI ALMAGUER MD Apr 29, 2025 00:17
[2025-04-29 01:14] VITALS: BP 109/73; PULSE 83; RESP 17; TEMP 98.1; O2SAT 90
[2025-04-29 05:00] VITALS: BP 105/76; PULSE 74; RESP 17; TEMP 98.1; O2SAT 90
[2025-04-29 10:10] LABS: Hepatitis B Surface Antigen Negative (Negative)
[2025-04-29 10:32] LABS: Hepatitis C Antibody Negative (Negative)
== END 2025-04-29 06:46 | disposition left against medical advice (07) | DRG 463 ==
LOC: ER 11:19 → OVERFLOW 14:15 → EAST 04-28 21:19 → UNDODISIN 04-29 06:40
PROVIDERS: ADMIT Nurse Practitioner; ATTEND Nurse Practitioner
DX: N13.6 Pyonephrosis (principal); N17.0 Acute kidney failure with tubular necrosis; E11.649 Type 2 diabetes mellitus with hypoglycemia without coma; I10 Essential (primary) hypertension; J45.909 Unspecified asthma, uncomplicated; E11.65 Type 2 diabetes mellitus with hyperglycemia; N40.0 Benign prostatic hyperplasia without lower urinary tract symptoms; K86.1 Other chronic pancreatitis; E78.5 Hyperlipidemia, unspecified; Z86.73 Personal history of transient ischemic attack (TIA), and cerebral infarction without residual deficits; Z88.8 Allergy status to other drugs, medicaments and biological substances
CPT/HCPCS: 36415; 74176; 74181; 80053; 81001; 82962; 83605; 83690; 84484; 85025; 86301; 86803; 87340; 96365; G0378; J1815; J2405; J2470; J2543